=== PATIENT | female | born 1980 | race Caucasian/White ===

== ENCOUNTER 2017-10-05 16:34 | Emergency (ER) | payer OTHER ==
[2017-10-05] MEDS ORDERED: TETANUS AND DIPHTHERIA TOX/PF 0.5 ML DISP.SYRIN ONE (16:55)
[2017-10-05] MEDS ORDERED: Cephalexin 500 MG CAP ONE (16:55)
[2017-10-05] MEDS ORDERED: Ibuprofen 800 MG TAB ONE (16:55)
[2017-10-05] MEDS ORDERED: Bacitracin Zinc 1 Packet ONE (17:03)
--- NOTE | 2017-10-05 18:20 | RAD ---
THREE VIEWS OF THE LEFT INDEX FINGER 10/05/17 COMPARISON: None. HISTORY: Trauma, pain. FINDINGS: Bandaging overlies the index finger limiting osseous detail. There is an obliquely oriented nondispla gaurav fracture suspected involving the mid shaft of the second distal phalanx with a small fracture fra gment and/or radiopaque foreign body within the soft tissues just lateral to the distal phalanx measu ring 1-2 mm. IMPRESSION: Fracture of the distal phalanx of the second digit as above with subcentimeter displaced fracture fra gment and/or foreign body. Given laceration, this is consistent with an open fracture. POS: [facility]
== END 2017-10-05 19:05 | disposition home or self-care (01) ==
LOC: MADERS 16:34
DX: S62.522A Displaced fracture of distal phalanx of left thumb, initial encounter for closed fracture (principal); E03.9 Hypothyroidism, unspecified; Z79.899 Other long term (current) drug therapy; W26.0XXA Contact with knife, initial encounter
CPT/HCPCS: 90471

== ENCOUNTER 2018-01-19 13:10 | Emergency (ER) | payer OTHER, SELFPAY ==
[2018-01-19] MEDS ORDERED: Sterile Water 10 ML ONE (13:53)
[2018-01-19] MEDS ORDERED: cefTRIAXone\\ROCEPHIN 1 GM VIAL ONE (13:53)
[2018-01-19] MEDS ORDERED: Morphine 4 MG/ML VIAL ONE (13:53)
[2018-01-19] MEDS ORDERED: Ondansetron ODT 4 MG TAB ONE (13:53)
== END 2018-01-19 14:27 | disposition home or self-care (01) ==
LOC: MADERS 13:10
DX: H60.93 Unspecified otitis externa, bilateral (principal); H70.93 Unspecified mastoiditis, bilateral; E03.9 Hypothyroidism, unspecified; Z86.73 Personal history of transient ischemic attack (TIA), and cerebral infarction without residual deficits; Z79.899 Other long term (current) drug therapy
CPT/HCPCS: 96372; A4216; J0696; J2270; Q0162